=== PATIENT | female | born 1980 | race Caucasian/White ===

== ENCOUNTER 2017-04-06 10:48 | Emergency (ER) | payer OTHER ==
[~2017-04-06] VITALS: Ht 167.6 cm; Wt 90.7 kg
[~2017-04-06 10:48] MED LIST: CIPROFLOXACIN500 M1 PO; FLOMAX PO; IBUPROFEN 800800 MG PO; NAPROSYN500 MG PO; NOHOMEMEDICATIONS; NORCO 5-325 TA1 EACH PO; ZOFRAN4 MG PO; ZOLOFT 50 MG TA50 M1
[2017-04-06] MEDS ORDERED: XANAX1 MG PO (11:03)
[2017-04-06] MEDS ORDERED: CELEXA10 MG PO (11:03)
[2017-04-06 11:43] LABS: INFLUENZA A ANTIGEN None Detected (None Detect); INFLUENZA B ANTIGEN None Detected (None Detect)
[2017-04-06] MEDS ORDERED: MEDROLDOSEPACK PO (11:56)
[2017-04-06] MEDS ORDERED: MUCINEX D TABL1 EACH PO (11:57)
[2017-04-06 12:16] VITALS: BP 134/86
== END 2017-04-06 12:17 | disposition home or self-care (01) ==
LOC: M.ERS 10:48
PROVIDERS: Nurse Practitioner
DX: J40 Bronchitis, not specified as acute or chronic (principal); F17.210 Nicotine dependence, cigarettes, uncomplicated; Z90.89 Acquired absence of other organs; Z90.49 Acquired absence of other specified parts of digestive tract; Z98.890 Other specified postprocedural states; Z88.0 Allergy status to penicillin